=== PATIENT | female | born 1975 | race Caucasian/White ===

== ENCOUNTER 2018-11-11 23:09 | Emergency (ER) | payer SELFPAY ==
--- NOTE | 2018-11-11 23:41 | RADIOLOGY REPORT (SQ) ---
EXAM DESCRIPTION: XR FINGERS COMPLETED DATE/TME: 11/11/2018 00:00 CLINICAL HISTORY: 42 years, Female, Hyperextended thumb/ painful COMPARISON: None. NUMBER OF VIEWS: 3 TECHNIQUE: 3 views of the right thumb LIMITATIONS: None. FINDINGS: Negative for acute fracture or dislocation. Accessory ossicles are noted. Soft tissues are unremarkable IMPRESSION: Negative exam copyright 2010 [employer] [facility] [employer]- All Rights Reserved
[2018-11-12] MEDS ORDERED: OXYCODONE-ACETAMINOPHEN 5-325 MG TABLET PO ONE (02:33)
--- NOTE | 2018-11-12 02:35 | ER Document Report ---
ED General - General Chief Complaint: Thumb Injury Stated Complaint: THUMB INJURY Time Seen by Provider: 11/12/18 02:21 Mode of Arrival: Ambulatory Information source: Patient, [facility] Records Notes: 42-year-old female with arthritis, migraine headaches presents with complaint of right thumb pain that started 1 day prior to arrival. Patient states that she is watching a friend's cats and has a total of 4 cats in her house at this time who are not getting along very well. She states that in the middle of the night they began fighting and she slammed her hand against what she thought was the bed but ended up being the floor. She has been experiencing throbbing pain on her right thumb since that time. Patient is right-hand dominant. TRAVEL OUTSIDE OF THE [place] IN LAST 30 DAYS: No - HPI Onset: Yesterday Onset/Duration: Sudden Quality of pain: Throbbing Severity: Mild Associated symptoms: Body/muscle aches. denies: Chest pain, Fever, Nausea, Vomiting, Shortness of breath Exacerbated by: Movement Relieved by: Remaining still Similar symptoms previously: No Recently seen / treated by doctor: No - Related Data Allergies/Adverse Reactions: No Known Allergies Allergy (Verified 03/13/15 14:30) Past Medical History - General Information source: Patient - Social History Smoking Status: Current Every Day Smoker Cigarette use (# per day): Yes - 10 Chew tobacco use (# tins/day): No Smoking Education Provided: Yes - Smoking cessation counseling was provided for 4 minutes at the bedside Frequency of alcohol use: None Drug Abuse: None Lives with: Family Family History: Arthritis, DM, Hyperlipidemia, Malignancy Patient has suicidal ideation: No Patient has homicidal ideation: No Neurological Medical History: Reports: Hx Migraine Renal/ Medical History: Denies: Hx Peritoneal Dialysis Musculoskeletal Medical History: Reports Hx Arthritis, Reports Hx Musculoskeletal Deformity Past Surgical History: Reports: Hx Orthopedic Surgery - back surgery - Immunizations Immunizations up to date: No Hx Diphtheria, Pertussis, Tetanus Vaccination: No Review of Systems - Review of Systems Notes: REVIEW OF SYSTEMS: CONSTITUTIONAL : Denies fever, chills, or sweats. Denies recent illness. Denies weight loss, recent hospitalizations. EENT: Denies visual changes, eye pain. Denies sore throat, oral lesions, difficulty swallowing. CARDIOVASCULAR: Denies chest pain. Denies palpitations. Denies lower extremity edema. RESPIRATORY: Denies cough. Denies shortness of breath, wheezing. GASTROINTESTINAL: Denies abdominal pain or distention. Denies nausea, vomiting, or diarrhea. Denies blood in vomitus, stools, or per rectum. Denies black, tarry stools. Denies constipation. GENITOURINARY: Denies difficulty urinating, painful urination, frequency, blood in urine, or vaginal discharge. MUSCULOSKELETAL: Denies back or neck pain or stiffness. SKIN: Denies rash, lesions or sores. HEMATOLOGIC : Denies easy bruising or bleeding. LYMPHATIC: Denies swollen glands. NEUROLOGICAL: Denies confusion or altered mental status. Denies loss of consciousness. Denies dizziness or lightheadedness. Denies headache. Denies weakness or paralysis. Denies problems difficulty with ambulation, slurred speech. Denies sensory loss, numbness, or tingling. Denies seizures. PSYCHIATRIC: Denies anxiety or stress. Denies depression, suicidal ideation, or homicidal ideation. Denies visual or auditory hallucinations. Physical Exam - Vital signs Vitals: Temp Pulse Resp BP Pulse Ox 98.9 F 83 16 153/87 H 98 11/11/18 23:45 11/11/18 23:45 11/11/18 23:45 11/11/18 23:45 11/11/18 23:45 - Notes Notes: PHYSICAL EXAMINATION: GENERAL: Well-appearing, well-nourished and in no acute distress. HEAD: Atraumatic, normocephalic. EYES: Pupils equal round and reactive to light, extraocular movements intact, conjunctiva are normal. ENT: Nares patent, oropharynx clear without exudates. Moist mucous membranes. NECK: Normal range of motion, supple without lymphadenopathy LUNGS: Breath sounds clear to auscultation bilaterally and equal. No wheezes rales or rhonchi. HEART: Regular rate and rhythm without murmurs ABDOMEN: Soft, nontender, nondistended abdomen. No guarding, no rebound. No masses appreciated. Female : deferred Musculoskeletal: Normal range of motion, no pitting or edema. No cyanosis. Hand exam-Symmetrically palpable radial and ulnar pulses. Cap refill less than 2 seconds on all digits. Intact sensation to light touch of the radial, median and ulnar nerves demonstrated by testing in the dorsal webspace of the thumb the distal palmar aspect of the index finger and lateral surface of the fifth finger. Two-point discrimination intact to 5 mm of discrimination in the affected digit. 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 Intact recurrent median nerve as demonstrated by ability to move down fully through opposition, abduction and flexion. No snuffbox tenderness. NEUROLOGICAL: Cranial nerves grossly intact. Normal speech, normal gait. Normal sensory, motor exams PSYCH: Normal mood, normal affect. SKIN: Warm, Dry, normal turgor, no rashes or lesions noted. Course - Re-evaluation Re-evalutation: Finger X-Ray 11/11/18 00:00 IMPRESSION: Negative exam copyright 2010 [employer]- All Rights Reserved Temp Pulse Resp BP Pulse Ox 98.9 F 83 16 153/87 H 98 11/11/18 23:45 11/11/18 23:45 11/11/18 23:45 11/11/18 23:45 11/11/18 23:45 11/12/18 02:40 42-year-old female presents with right thumb pain after slamming her hand against the floor. Vital signs reviewed and within normal limits upon arrival. Patient does not appear toxic or dehydrated. She is in no acute distress. Previous medical records and nursing notes reviewed. Patient's x-ray negative for fracture. Patient does have pain with range of motion of the thumb but no obvious deformity. Patient was placed in a thumb spica splint for comfort. She was given a prescription for Naprosyn. She was advised to ice as often as possible. Patient was evaluated and treated as appropriate for the patient's presenting symptoms and complaint, with consideration of any critical or life threatening conditions that may be associated with their obtained history and exam as noted above. All results were discussed with patient. Patient provided the opportunity to ask questions, and express concerns. Patient was educated on treatments based on their presumed diagnosis as noted above. At this time we will discharge the patient with return precautions and follow-up recommendations. Verbal discharge instructions given a the bedside. Medication warnings reviewed. Patient is in agreement with this plan and has verbalized understanding of return precautions. After careful consideration I feel that that patient can be safely discharged from the emergency department, they were advised to followup with a primary care physician in 2-3 days. Dictation on this chart was performed using voice recognition software and may result in unintended grammatical, spelling, syntax or errors. - Vital Signs Vital signs: Temp Pulse Resp BP Pulse Ox 98.9 F 83 16 153/87 H 98 11/11/18 23:45 11/11/18 23:45 11/11/18 23:45 11/11/18 23:45 11/11/18 23:45 - Diagnostic Test Radiology reviewed: Image reviewed, Reports reviewed Discharge - Discharge Clinical Impression: Elevated blood pressure reading Contusion, thumb Qualifiers: Encounter type: initial encounter Damage to nail status: without damage Laterality: right Qualified Code(s): S60.011A - Contusion of right thumb without damage to nail, initial encounter Condition: Good Disposition: HOME, SELF-CARE Instructions: Contusion ([facility]), Sprained Finger ([facility]) Additional Instructions: Follow up with your -66 hours for further care or return to the ED IMMEDIATELY if symptoms worsen or you have any concerns. If you cannot afford to follow up with your primary care physician a list of low cost clinics have been provided at the end of your discharge papers as well. Most prescribed medications have multiple side effects. The safest thing to do is when filling your prescription speak to your pharmacist regarding possible interactions with your normal home medications and over the counter medications such as Ibuprofen, Tylenol, Benadryl. If you experience any symptoms that cause you discomfort or concern you should discontinue the medication immediately and return to the emergency room or call your primary care physician. Regarding Blood Pressure: Your blood pressure was noted to be greater than 120/80 at least once in the emergency room today. It is recommended that you follow-up with her primary care physician in the next week for repeat blood pressure check. The Centers for Medicare and Medicaid Services has specific recommendations regarding a person's blood pressure. There are several lifestyle modifications that are recommended in order to help lower your blood pressure. These include: Quitting smoking if you smoke. Reducing the amount of sodium in your diet. Getting regular exercise Limiting alcohol to no more than 2 drinks a day for men and one drink a day for women. Eating a healthy diet, including more fruits and vegetables, low fat dairy products, less saturated and total fat. Losing weight if you are overweight. FOLLOW-UP: Call your doctor's office and let them know your blood pressure was elevated and you were advised to get your blood pressure checked in the above time-line. If you are unable to get into your doctor's office in this time period, you can follow-up with a new physician (I have left the numbers below for a few primary care doctors affiliated with this [facility]) or return to the ER. PRIMARY CARE PHYSICIANS: Dr. Lauri Glover [address], [place] [address] [phone] Dr Oseguera Address: [address] [place] [address] , [place] [address] Dr Vincent Address: [address] [place] [address] , [place] [address] Prescriptions: Naproxen 500 mg PO BID PRN #20 tablet PRN Reason: For Pain Scale 1-2 Forms: Elevated Blood Pressure
[2018-11-12 02:44] VITALS: BP 172/92
== END 2018-11-12 02:44 | disposition home or self-care (01) ==
LOC: ER 23:09
DX: S60.011A Contusion of right thumb without damage to nail, initial encounter (principal); R03.0 Elevated blood-pressure reading, without diagnosis of hypertension; M79.10 Myalgia, unspecified site; W22.8XXA Striking against or struck by other objects, initial encounter; F17.200 Nicotine dependence, unspecified, uncomplicated
CPT/HCPCS: 99283; 73140; L3908

== ENCOUNTER 2020-01-06 16:29 | Emergency (ER) | payer SELFPAY ==
[2020-01-06 16:34] VITALS: BP 136/72
--- NOTE | 2020-01-06 16:47 | ER Document Report ---
HPI - HPI Time Seen by Provider: 01/06/20 16:36 Notes: 44-year-old female patient presents emergency department chief complaint of nasal congestion, ear pain, cough and fever. Patient reports symptoms ongoing for the last 5 days. She denies any travel or exposure to patients suspected of having COVID-19. - REPRODUCTIVE Reproductive: DENIES: : Past Medical History - General Information source: Patient - Social History Smoking Status: Current Every Day Smoker Family History: Arthritis, DM, Hyperlipidemia, Malignancy Pulmonary Medical History: Reports: Hx Bronchitis Neurological Medical History: Reports: Hx Migraine Renal/ Medical History: Denies: Hx Peritoneal Dialysis Musculoskeletal Medical History: Reports Hx Arthritis, Reports Hx Musculoskeletal Deformity Past Surgical History: Reports: Hx Orthopedic Surgery - back surgery - Immunizations Immunizations up to date: No Hx Diphtheria, Pertussis, Tetanus Vaccination: No Vertical Provider Document - CONSTITUTIONAL Notes: PHYSICAL EXAMINATION: GENERAL: Well-appearing, well-nourished and in no acute distress. HEAD: Atraumatic, normocephalic. EYES: Pupils equal round and reactive to light, extraocular movements intact, conjunctiva are normal. ENT: Nares patent, oropharynx clear without exudates. Moist mucous membranes. NECK: Normal range of motion, supple without lymphadenopathy LUNGS: Breath sounds clear to auscultation bilaterally and equal. No wheezes rales or rhonchi. HEART: Regular rate and rhythm without murmurs ABDOMEN: Soft, nontender, nondistended abdomen. No guarding, no rebound. No masses appreciated. Female : deferred Musculoskeletal: Normal range of motion, no pitting or edema. No cyanosis. NEUROLOGICAL: Cranial nerves grossly intact. Normal speech, normal gait. Normal sensory, motor exams PSYCH: Normal mood, normal affect. SKIN: Warm, Dry, normal turgor, no rashes or lesions noted. - INFECTION CONTROL TRAVEL OUTSIDE OF THE [place] IN LAST 30 DAYS: No Course - Re-evaluation Re-evalutation: Patient's exam consistent with bronchitis and upper respiratory infection. Patient will be started on appropriate medications and discharged home. Patient is in agreements with this plan. - Vital Signs Vital signs: Temp Pulse Resp BP Pulse Ox 98.3 F 91 18 136/72 H 98 01/06/20 16:32 01/06/20 16:32 01/06/20 16:32 01/06/20 16:32 01/06/20 16:32 Discharge - Discharge Clinical Impression: URI (upper respiratory infection) Qualifiers: URI type: unspecified viral URI Qualified Code(s): J06.9 - Acute upper respiratory infection, unspecified Condition: Stable Disposition: HOME, SELF-CARE Instructions: Upper Respiratory Illness ([facility]) Prescriptions: Benzonatate [Tessalon Perles 100 mg Capsule] 1 - 2 tab PO Q8HP PRN #30 capsule PRN Reason: Prednisone [Deltasone 20 mg Tablet] 3 tab PO DAILY 5 Days #15 tablet Doxycycline Hyclate 100 mg PO BID #14 tablet.dr Forms: Return to Work
== END 2020-01-06 16:51 | disposition home or self-care (01) ==
LOC: ER 16:29
DX: J06.9 Acute upper respiratory infection, unspecified (principal); B97.89 Other viral agents as the cause of diseases classified elsewhere; R09.81 Nasal congestion; R05 Cough; R50.9 Fever, unspecified; H92.09 Otalgia, unspecified ear; I10 Essential (primary) hypertension
CPT/HCPCS: 99283

== ENCOUNTER 2020-04-06 16:56 | Emergency (ER) | payer BC ==
[2020-04-06 17:05] VITALS: BP 149/89
[2020-04-06] MEDS ORDERED: METHYLPREDNISOLONE INJ 125 MG/2 ML SDV IV ONE (17:50)
[2020-04-06] MEDS ORDERED: KETOROLAC TROMETHAMINE 60 MG/2 ML SDV IM ONE (17:50)
[2020-04-06] MEDS ORDERED: CYCLOBENZAPRINE HCL 10 MG TABLET PO ONE (17:51)
--- NOTE | 2020-04-06 17:51 | ER Document Report ---
HPI - HPI Patient complains to provider of: Upper back pain Time Seen by Provider: 04/06/20 17:46 Pain Level: 3 Context: 44-year-old female with no previous medical problems presents to the emergency room complaining of some upper back pain. Patient states her sailing had fallen and she was holding it while it was being repaired when she felt a sharp pain in her left upper back. Denies falling or injuring her back. History of chronic low back pain. Took ibuprofen approximately 2 hours prior to arrival without relief. She describes it as a sharp pain to her left upper back. Denies any shortness of breath, no difficulty breathing. Nonradiating. No weakness to her upper or lower extremities. Associated Symptoms: None Exacerbated by: Movement Relieved by: Denies Similar symptoms previously: No Recently seen / treated by doctor: No - ROS Systems Reviewed and Negative: Yes All other systems reviewed and negative - CONSTITUTIONAL Constitutional: DENIES: Fever, Chills - NEURO Neurology: DENIES: Headache, Weakness - CARDIOVASCULAR Cardiovascular: DENIES: Chest pain - RESPIRATORY Respiratory: DENIES: Trouble Breathing - REPRODUCTIVE Reproductive: DENIES: : - MUSCULOSKELETAL Musculoskeletal: REPORTS: Back Pain - DERM Skin Color: Normal, [place] Skin Problems: None Past Medical History - General Information source: Patient - Social History Smoking Status: Current Every Day Smoker Frequency of alcohol use: None Drug Abuse: None Family History: Arthritis, DM, Hyperlipidemia, Malignancy Patient has homicidal ideation: No Pulmonary Medical History: Reports: Hx Bronchitis Neurological Medical History: Reports: Hx Migraine Renal/ Medical History: Denies: Hx Peritoneal Dialysis Musculoskeletal Medical History: Reports Hx Arthritis, Reports Hx Musculoskeletal Deformity Past Surgical History: Reports: Hx Orthopedic Surgery - back surgery - Immunizations Immunizations up to date: No Hx Diphtheria, Pertussis, Tetanus Vaccination: No Vertical Provider Document - CONSTITUTIONAL Agree With Documented VS: Yes Exam Limitations: No Limitations General Appearance: Moderate Distress - INFECTION CONTROL TRAVEL OUTSIDE OF THE [place] IN LAST 30 DAYS: No - HEENT HEENT: Atraumatic, Normocephalic - NECK Neck: Normal Inspection, Supple, Thyroid Normal. negative: Lymphadenopathy- Left, Lymphadenopathy-Right - RESPIRATORY Respiratory: Breath Sounds Normal, No Respiratory Distress, Chest Non-Tender. negative: Rales, Rhonchi, Wheezing - CARDIOVASCULAR Cardiovascular: No Murmur, Tachycardia - BACK Back: Abnormal Inspection - Nontender to palpation of the thoracic and vertebral spine. There are muscle spasms palpated over the left trapezius muscle as well as the left lateral aspect of the back posterior shoulder blade. No obvious deformities noted. No rib pain.. negative: CVA Tenderness-Right, CVA Tenderness-Left - MUSCULOSKELETAL/EXTREMETIES Musculoskeletal/Extremeties: FROM, Non-Tender, No Edema - NEURO Level of Consciousness: Awake, Alert, Appropriate Motor/Sensory: No Motor Deficit, No Sensory Deficit - DERM Integumentary: Warm, Dry, No Rash Course - Re-evaluation Re-evalutation: 04/06/20 18:24 Patient is resting comfortably with decreased pain. Neurovascularly intact. Ambulatory with a steady gait. 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 Counseled to take medications as prescribed. Outpatient follow-up with a primary care physician if not improving in 2 to 3 days. On-call physician was provided. Patient was given strict return to the emergency room guidelines. Return for any new or worsening symptoms. All questions were answered. Patient verbalized understanding and agrees with plan of care. 04/06/20 23:54 - Vital Signs Vital signs: Temp Pulse Resp BP Pulse Ox 98.6 F 102 H 20 149/89 H 99 04/06/20 17:46 04/06/20 17:03 04/06/20 17:03 04/06/20 17:03 04/06/20 17:03 Discharge - Discharge Clinical Impression: Muscle strain Back pain Qualifiers: Back pain location: thoracic back pain Chronicity: acute Back pain laterality: bilateral Qualified Code(s): M54.6 - Pain in thoracic spine Condition: Stable Disposition: HOME, SELF-CARE Instructions: Muscle Strain ([facility]), Warm Packs ([facility]) Additional Instructions: You have been seen in the Emergency Department (ED) today for back pain. Your workup and exam have not shown any acute abnormalities and you are likely suffering from muscle strain or possible problems with your discs, but there is no treatment that will fix your symptoms at this time. Please take the naproxen that has been prescribed as directed. You should also purchase a local lidocaine cream such as "aspercreme with lidocaine" and use per bottle instructions to the affected area. Apply heat to the area as often as you are able. Continue to keep active and avoid prolonged periods of bed rest. Call medications as prescribed. Please follow up with your doctor as soon as possible regarding today's ED visit and your back pain. Return to the ED for worsening back pain, fever, weakness or numbness of either leg, or if you develop either (1) an inability to urinate or have bowel movements, or (2) loss of your ability to control your bathroom functions (if you start having "accidents"), or if you develop other new symptoms that concern you.concern you. Prescriptions: Prednisone [Deltasone 20 mg Tablet] See Protocol PO DAILY 9 Days #18 tablet Cyclobenzaprine HCl [Flexeril 10 mg Tablet] 10 mg PO TIDP PRN #15 tab PRN Reason: Naproxen 500 mg PO BID PRN #14 tablet PRN Reason: Forms: Return to Work Referrals: ESPERANZA WHELAN MD [ACTIVE STAFF] - Follow up as needed
== END 2020-04-06 18:32 | disposition home or self-care (01) ==
LOC: ER 16:56
DX: T14.8XXA Other injury of unspecified body region, initial encounter (principal); X58.XXXA Exposure to other specified factors, initial encounter; M54.6 Pain in thoracic spine; M62.830 Muscle spasm of back; F17.200 Nicotine dependence, unspecified, uncomplicated
CPT/HCPCS: 99283; 96372; 96374; J1885; J2930

== ENCOUNTER 2020-10-20 12:39 | Emergency (ER) | payer BC ==
[2020-10-20 13:43] VITALS: BP 141/90
[2020-10-20] MEDS ORDERED: DEXAMETHASONE SOD PHOS INJ 10 MG/1 ML VIAL IV ONE (13:51)
[2020-10-20] MEDS ORDERED: NORMAL SALINE 1000 ML 1,000 ML IV ONE (13:51)
--- NOTE | 2020-10-20 13:52 | ER Document Report ---
ED Medical Screen (RME) - General Chief Complaint: Sore Throat Stated Complaint: SORE THROAT,HEADACHE Time Seen by Provider: 10/20/20 13:48 Notes: Patient presents complaining of sore throat for the past 4 days with headache. Patient reports temperature of 102.3 at home. Patient denies any significant medical history. Patient states that she feels as though her throat is swelling. Patient reports decreased oral intake due to her symptoms. I have greeted and performed a rapid initial assessment of this patient. A comprehensive ED assessment and evaluation of the patient, analysis of test results and completion of the medical decision making process will be conducted by additional ED providers. TRAVEL OUTSIDE OF THE [place] IN LAST 30 DAYS: No - Related Data Allergies/Adverse Reactions: No Known Allergies Allergy (Verified 03/13/15 14:30) Past Medical History Pulmonary Medical History: Reports: Hx Bronchitis Neurological Medical History: Reports: Hx Migraine Renal/ Medical History: Denies: Hx Peritoneal Dialysis Musculoskeltal Medical History: Reports Hx Arthritis, Reports Hx Musculoskeletal Deformity Past Surgical History: Reports: Hx Orthopedic Surgery - back surgery - Immunizations Immunizations up to date: No Hx Diphtheria, Pertussis, Tetanus Vaccination: No Physical Exam - Vital signs Vitals: Temp Pulse Resp BP Pulse Ox 98.4 F 101 H 18 141/90 H 96 10/20/20 13:39 10/20/20 13:39 10/20/20 13:39 10/20/20 13:39 10/20/20 13:39 - HEENT Pharynx: Erythema, Exudate. No: Peritonsillar abscess, Retropharyngeal abscess, Tonsillar hypertrophy, Potential airway comprom. Course - Vital Signs Vital signs: Temp Pulse Resp BP Pulse Ox 98.4 F 101 H 18 141/90 H 96 10/20/20 13:39 10/20/20 13:39 10/20/20 13:39 10/20/20 13:39 10/20/20 13:39
[2020-10-20 14:26] LABS: ABSOLUTE EOSINOPHILS # (AUTO) 0.1 10^3/uL (0.0-0.6); ABSOLUTE MONOCYTES (AUTO) 1.2 10^3/uL (0.1-1.4); ABSOLUTE NEUT (AUTO) 8.2 10^3/uL (1.7-8.2); BASOPHILS % (AUTO) 0.4 % (0-2); EOSINOPHILS % (AUTO) 0.5 % (0-6); HEMATOCRIT 42.4 % (36.0-47.0); HEMOGLOBIN 14.7 g/dL (12.0-15.5); LYMPHOCYTES % (AUTO) 9.5 % (13-45); MEAN CORPUSCULAR HEMOGLOBIN 32.8 pg (27.0-33.4); MEAN CORPUSCULAR HGB CONC 34.7 g/dL (32.0-36.0); MEAN CORPUSCULAR VOLUME 94 fl (80-97); MONOCYTES % (AUTO) 11.3 % (3-13); PLATELET COUNT 194 10^3/uL (150-450); RED BLOOD COUNT 4.49 10^6/uL (3.72-5.28); RED CELL DISTRIBUTION WIDTH 13.5 % (11.5-14.0); SEGMENTED NEUTROPHILS % (AUTO) 78.3 % (42-78); TOTAL CELLS COUNTED % (AUTO) 100 %; WHITE BLOOD COUNT 10.5 10^3/uL (4.0-10.5)
[2020-10-20 14:43] LABS: ANION GAP 5 (5-19); BLOOD UREA NITROGEN 9 mg/dL (7-20); CARBON DIOXIDE 25 mmol/L (22-30); CHLORIDE 106 mmol/L (98-107); GLUCOSE 90 mg/dL (75-110)
== END 2020-10-20 17:41 | disposition left against medical advice (07) ==
LOC: ER 12:39
DX: J02.9 Acute pharyngitis, unspecified (principal); R51.9 Headache, unspecified; Z53.20 Procedure and treatment not carried out because of patient's decision for unspecified reasons
CPT/HCPCS: 36415; 80048; 85025; 86308; 87070; 87077; 87880; 99281

== ENCOUNTER 2020-10-22 09:52 | Emergency (ER) | payer BC ==
[2020-10-22] MEDS ORDERED: DEXAMETHASONE SOD PHOSPHATE INJ 4 MG/1 ML VIAL IV ONE (12:11)
[2020-10-22] MEDS ORDERED: NORMAL SALINE 1000 ML 1,000 ML IV ONE ×2 (12:11→14:32)
--- NOTE | 2020-10-22 12:16 | ER Document Report ---
ED General - General Stated Complaint: SWOLLEN THROAT Time Seen by Provider: 10/22/20 12:09 Primary Care Provider: LURDES VELA MD [COMMUNITY BASED STAFF] - Follow up as needed TRAVEL OUTSIDE OF THE [place] IN LAST 30 DAYS: No - HPI Notes: 44-year-old female presents to the emergency room today for evaluation of a sore throat, difficulty swallowing and pain that is become progressively worse over the last couple of days. Patient was seen on [facility], they did do a work-up however she was unable to stay and left before being seen by a provider main side. Patient states her pain is 5 out of 5, sharp and constant in her throat. she has not been able to eat but she has been drinking minimally, reports chills denies fevers. Reports she did have mononucleosis when she was 18. She is able to maintain her secretions. rapid strep and mononucleosis test were negative, her labs were normal. Denies fevers, chills, chest pain,palpitations, shortness of breath, dyspnea, nausea, vomiting, diarrhea, abdominal pain, hematuria,blurred vision, double vision, loss of vision, speech changes, LH, dizziness, syncope, headaches, wheezing, URI, neck pain, weakness, bowel or bladder dysfunction, saddle anesthesia, numbness or tingling in bilateral upper or lower extremities equally, muscle paralysis, weakness in bilateral upper or lower extremities equally or rash. - Related Data Allergies/Adverse Reactions: No Known Allergies Allergy (Verified 03/13/15 14:30) Past Medical History - General Information source: Patient - Social History Smoking Status: Current Every Day Smoker Family History: Arthritis, DM, Hyperlipidemia, Malignancy Pulmonary Medical History: Reports: Hx Bronchitis Neurological Medical History: Reports: Hx Migraine Renal/ Medical History: Denies: Hx Peritoneal Dialysis Musculoskeletal Medical History: Reports Hx Arthritis, Reports Hx Musculoskeletal Deformity Past Surgical History: Reports: Hx Orthopedic Surgery - back surgery - Immunizations Immunizations up to date: No Hx Diphtheria, Pertussis, Tetanus Vaccination: No Review of Systems - Review of Systems Constitutional: No symptoms reported EENT: See HPI Cardiovascular: No symptoms reported Respiratory: No symptoms reported Gastrointestinal: No symptoms reported Genitourinary: No symptoms reported Female Genitourinary: No symptoms reported Musculoskeletal: No symptoms reported Skin: No symptoms reported Hematologic/Lymphatic: No symptoms reported Neurological/Psychological: No symptoms reported Physical Exam - Vital signs Vitals: Temp Pulse Resp BP Pulse Ox 98.2 F 127 H 20 122/81 95 10/22/20 09:58 10/22/20 09:58 10/22/20 09:58 10/22/20 09:58 10/22/20 09:58 - Notes Notes: MEDICATIONS: I agree with the patient medications as charted by the RN. ALLERGIES: I agree with the allergies as charted by the RN. PAST MEDICAL HISTORY/PAST SURGICAL HISTORY: Reviewed and agree as charted by RN. SOCIAL HISTORY: Reviewed and agree as charted by RN. FAMILY HISTORY: No significant familial comorbid conditions directly related to patient complaint EXAM: Reviewed vital signs as charted by RN. PHYSICAL EXAMINATION: reviewed vital signs by RN GENERAL: Well-appearing, well-nourished and in no acute distress. HEAD: Atraumatic, normocephalic. EYES: Pupils equal round and reactive to light, extraocular movements intact, conjunctiva are normal. ENT: Nares patent, tonsils +2 bilterally with exudates, oropharynx clear with exudates. Moist mucous membranes. uvula midline. No trismus bilaterally NECK: Normal range of motion, supple without lymphadenopathy LUNGS: Breath sounds clear to auscultation bilaterally and equal. No wheezes rales or rhonchi. HEART: Regular rate and rhythm without murmurs ABDOMEN: Soft, nontender, nondistended abdomen. No guarding, no rebound. No masses appreciated. Female : deferred Musculoskeletal: Normal range of motion, no pitting or edema. No cyanosis. NEUROLOGICAL: Cranial nerves grossly intact. Normal speech, normal gait. Puja l sensory, motor exams PSYCH: Normal mood, normal affect. SKIN: Warm, Dry, normal turgor, no rashes or lesions noted. Course - Re-evaluation Re-evalutation: 10/22/20 18:33 Afebrile vital stable no distress. Nurses notes reviewed. When looking back at throat culture from the other day, it did come back with group C beta Strept ococcus which is treated with penicillins. CBC with slight leukocytosis of 10.4, CMP negative for any hepatic or renal dysfunction, no electrolyte disturbances. Patient given 10 mg of dexamethasone as well as 1 g of Rocephin IV. Received 2 L of IV fluids which did bring her heart rate down to normal range, patient is often in her drinking much due to having pharyngitis. Patient is requesting to not be placed on penicillin because she states "this never works for her". will start on her on zpack and prednisone. Patient states she felt much better after IV fluids, Decadron and Rocephin. After performing a Medical Screening Examination, I estimate there is LOW risk for ACUTE CORONARY SYNDROME, PULMONARY EMBOLI, RESPIRATORY FAILURE, SEPSIS OR MENINGITIS, thus I consider the discharge disposition reasonable. I have reevaluated this patient multiple times and no significant life threatening changes are noted. The patient and I have discussed the diagnosis and risks, and we agree with discharging home with close follow-up. We also discussed returning to the Emergency Department immediately if new or worsening symptoms occur. We have discussed the symptoms which are most concerning (e.g., changing or worsening pain, trouble swallowing or breathing, neck stiffness, fever) that necessitate immediate return. 10/22/20 18:35 - Vital Signs Vital signs: Temp Pulse Resp BP Pulse Ox 99.3 F 93 16 132/78 H 98 10/22/20 15:59 10/22/20 15:59 10/22/20 15:59 10/22/20 15:59 10/22/20 15:59 - Laboratory Results Result Diagrams: 10/22/20 12:28 10/22/20 12:28 Laboratory Results Interpreted: 10/22/20 10/22/20 12:28 12:28 WBC 10.8 H Hgb 16.5 H Hct 47.8 H Lymph % (Auto) 12.1 L Monotest POSITIVE H Critical Laboratory Results Reviewed: No Critical Results - Radiology Results Critical Radiology Results Reviewed: No Critical Results Discharge - Discharge Clinical Impression: Strep pharyngitis, Mononucleosis Condition: Stable Disposition: HOME, SELF-CARE Instructions: Fever ([facility]), Mononucleosis ([facility]), Sore Throat ([facility]), Strep Throat ([facility]) Additional Instructions: you received IV fluids today, 10mg of decadron and 1g of rocephin IV. Stay positive for mononucleosis today as well as strep pharyngitis. Please take Z- Trav as directed as well as the prednisone. Follow-up with your primary care provider in the next 24 to 48 hours. Rest, hydrate, avoid any strenuous activities. You were given a work note for a week. Return immediately for any new or worsening symptoms. Follow up with primary care provider, call tomorrow to make followup appointment. Prescriptions: Prednisone [Deltasone 20 mg Tablet] 3 tab PO DAILY 5 Days #15 tablet Azithromycin [Zithromax] 250 mg PO DAILY 5 Days #6 tablet Forms: Return to Work Referrals: LURDES VELA MD [COMMUNITY BASED STAFF] - Follow up as needed
[2020-10-22] MEDS ORDERED: CEFTRIAXONE 1 GM/D5W RTU 1 GM/50 ML RTUPB IV ONE (12:34)
[2020-10-22 12:54] LABS: ABSOLUTE LYMPHOCYTES (AUTO) 1.3 10^3/uL (0.5-4.7); ABSOLUTE MONOCYTES (AUTO) 1.2 10^3/uL (0.1-1.4); ABSOLUTE NEUT (AUTO) 8.2 10^3/uL (1.7-8.2); BASOPHILS % (AUTO) 0.4 % (0-2); EOSINOPHILS % (AUTO) 0.2 % (0-6); HEMATOCRIT 47.8 % (36.0-47.0); HEMOGLOBIN 16.5 g/dL (12.0-15.5); LYMPHOCYTES % (AUTO) 12.1 % (13-45); MEAN CORPUSCULAR HEMOGLOBIN 32.3 pg (27.0-33.4); MEAN CORPUSCULAR HGB CONC 34.5 g/dL (32.0-36.0); MEAN CORPUSCULAR VOLUME 94 fl (80-97); MONOCYTES % (AUTO) 11.5 % (3-13); PLATELET COUNT 226 10^3/uL (150-450); RED CELL DISTRIBUTION WIDTH 13.3 % (11.5-14.0); SEGMENTED NEUTROPHILS % (AUTO) 75.8 % (42-78); TOTAL CELLS COUNTED % (AUTO) 100 %; WHITE BLOOD COUNT 10.8 10^3/uL (4.0-10.5)
[2020-10-22 13:18] LABS: ALBUMIN 4.2 g/dL (3.5-5.0); ALKALINE PHOSPHATASE 90 U/L (38-126); ANION GAP 9 (5-19); ASPARTATE AMINO TRANSFERASE 25 U/L (14-36); BILIRUBIN,DIRECT 0.3 mg/dL (0.0-0.4); BILIRUBIN,TOTAL 0.4 mg/dL (0.2-1.3); BLOOD UREA NITROGEN 12 mg/dL (7-20); CALCIUM 9.3 mg/dL (8.4-10.2); CARBON DIOXIDE 26 mmol/L (22-30); CHLORIDE 105 mmol/L (98-107); GLUCOSE 100 mg/dL (75-110); POTASSIUM 3.7 mmol/L (3.6-5.0); TOTAL PROTEIN 8.2 g/dL (6.3-8.2)
[2020-10-22 16:01] VITALS: BP 132/78
== END 2020-10-22 16:00 | disposition home or self-care (01) ==
LOC: ER 09:52
DX: J02.0 Streptococcal pharyngitis (principal); B27.90 Infectious mononucleosis, unspecified without complication; R13.10 Dysphagia, unspecified; F17.200 Nicotine dependence, unspecified, uncomplicated
CPT/HCPCS: 99284; 96361; 96375; 96365; 36415; 87040; 87070; 87880; 85025; 87077; 86308; 80053; J1100; J7030; J0696